=== PATIENT | female | born 1975 | race Caucasian/White ===

== ENCOUNTER 2020-08-01 17:16 | Emergency (ER) | payer MEDICARE, OTHER, MEDICAID ==
[~2020-08-01] VITALS: Ht 167.6 cm; Wt 65.8 kg
[2020-08-01] MEDS ORDERED: MORPHINE SULFAT30 M2 PO (17:58)
[2020-08-01] MEDS ORDERED: MORPHINE SULFAT15 MG PO (17:59)
[2020-08-01] MEDS ORDERED: VALIUM5 MG PO (17:59)
[2020-08-01] MEDS ORDERED: DEXILANT60 MG PO (18:00)
[2020-08-01] MEDS ORDERED: ASPIRIN325 MG PO (18:00)
[2020-08-01] MEDS ORDERED: POTASSIUM CHLO10 ME1 PO (18:00)
[2020-08-01] MEDS ORDERED: CYCLOBENZAPRINE10 MG PO (18:00)
[2020-08-01] MEDS ORDERED: LEVOTHYROXINE25 MC1 PO (18:01)
[2020-08-01] MEDS ORDERED: PROMETHAZINE HC25 M1 PO (18:01)
[2020-08-01] MEDS ORDERED: CYMBALTA20 MG PO (18:02)
--- NOTE | 2020-08-02 17:29 | EKG ---
[facility] [address] [facility] [place], [place] [address] Signed Normal sinus rhythm Septal infarct , age undetermined Abnormal ECG No previous ECGs available Confirmed by SAM BAZAN MD ([id number]) on 08/02/2020 5:28:53 PM Electronically Signed By: SAM BAZAN MD 08/02/20 1729 PATIENT NAME: RENAN FREY Electrocardiogram DATE OF : 73 PHYSICIAN: SAM BAZAN MD REPORT #: [id number] REPORT IS CONFIDENTIAL AND NOT TO BE RELEASED WITHOUT AUTHORIZATION
== END 2020-08-01 21:12 | disposition home or self-care (01) ==
LOC: ED 17:16
DX: R10.9 Unspecified abdominal pain (principal); K21.9 Gastro-esophageal reflux disease without esophagitis; E03.9 Hypothyroidism, unspecified; Z88.2 Allergy status to sulfonamides; Z88.8 Allergy status to other drugs, medicaments and biological substances; Z88.5 Allergy status to narcotic agent; Z88.1 Allergy status to other antibiotic agents; Z79.899 Other long term (current) drug therapy; Z79.891 Long term (current) use of opiate analgesic; Z79.82 Long term (current) use of aspirin
CPT/HCPCS: 74177; 80053; 81001; 83690; 84484; 85025; 93005; 93010; 96375; 99284-25; J1885; J2550; J7030